=== PATIENT | male | born 1965 | race Caucasian/White ===

== ENCOUNTER → 2017-03-11 | Outpatient (CLI) | payer BC ==
[~2017-03-11] MED LIST: AMLO10TA2 PO; ASPI-496 PO; ATOR20TA9 PO; OXYC-229 PO; TRIA100A INJ
== END | disposition home or self-care (01) ==
LOC: CFH 14:16
PROVIDERS: ATTEND Internal Medicine Cardiovascular Disease
DX: I70.90 Unspecified atherosclerosis (principal); E78.5 Hyperlipidemia, unspecified
CPT/HCPCS: 75571

== ENCOUNTER 2018-09-25 22:01 | Emergency (ER) | payer BC ==
[~2018-09-25] VITALS: Ht 180.3 cm; Wt 114.0 kg
[~2018-09-25 22:01] MED LIST changes: -AMLO10TA2 PO; +AMLO10TA6 PO; +ATOR20TA37 PO; -ATOR20TA9 PO; -OXYC-229 PO; +OXYC-307 PO
[2018-09-25 22:02] VITALS: BP 142/85
[2018-09-25] MEDS ORDERED: LOSA50TA7 PO (22:06)
[2018-09-25 22:34] LABS: BASOPHILS # (AUTO) 0.04 x10^3/uL (0-0.1); BASOPHILS % (AUTO) 0 % (0-1); EOSINOPHILS # (AUTO) 0.42 x10^3/uL (0-0.4); EOSINOPHILS % (AUTO) 4 % (1-7); LYMPHOCYTES % (AUTO) 19 % (22-44); MD NO; MEAN CORPUSCULAR HEMOGLOBIN 32.1 pg (27.5-34.5); MEAN CORPUSCULAR HGB CONC 34.1 g/dL (33.2-36.2); MEAN CORPUSCULAR VOLUME 94.1 fL (81-97); MEAN PLATELET VOLUME 10.6 fL (7.4-10.4); MONOCYTES # (AUTO) 0.93 x10^3/uL (0.2-0.8); MONOCYTES % (AUTO) 9 % (2-9); NEUTROPHILS # (AUTO) 6.92 x10^3/uL (1.8-6.8); NEUTROPHILS % (AUTO) 67 % (42-75); PLATELET COUNT 197 x10^3/uL (130-400); RED BLOOD COUNT 4.78 x10^6/uL (4.38-5.82); RED CELL DISTRIBUTION WIDTH 14.4 % (9.4-14.8)
[2018-09-25 22:45] LABS: ANION GAP 8 mmol/L (5-15); CALCIUM 8.9 mg/dL (8.5-10.1); CHLORIDE 109 mmol/L (98-107); CREATININE 1.17 mg/dL (0.7-1.3)
[2018-09-25 22:49] LABS: TROPONIN I < 0.015 ng/mL (0.000-0.045)
[2018-09-25] MEDS ORDERED: ALBUTEROL/IPRATROPIUM 2.5MG/0.5MG, 3 ML NPPB ONE (23:30)
[2018-09-25] MEDS ORDERED: ALBUTEROL/IPRATROPIUM 2.5MG/0.5MG, 3 ML ONE (23:40)
== END 2018-09-25 23:56 | disposition home or self-care (01) ==
LOC: ED 22:57
DX: J06.9 Acute upper respiratory infection, unspecified (principal); J45.909 Unspecified asthma, uncomplicated
CPT/HCPCS: 36415; 71045; 80048; 83880; 84484; 85025; 93005; 94640; 99284; J7512; J7620

== ENCOUNTER 2020-05-14 02:54 | Emergency (ER) | payer BC ==
[~2020-05-14] VITALS: Ht 180.3 cm; Wt 106.5 kg
[~2020-05-14 02:54] MED LIST changes: -AMLO10TA6 PO; +AMLO10TA8 PO; +LOSA50TA14 PO
[2020-05-14] MEDS ORDERED: ALBUTEROL/IPRATROPIUM 2.5MG/0.5MG, 3 ML ONE (03:25)
[2020-05-14] MEDS ORDERED: ALBUTEROL/IPRATROPIUM 2.5MG/0.5MG, 3 ML NPPB SCH (03:30)
--- NOTE | 2020-05-14 03:42 | NUR ---
PT STATES USING INHAILER Q1H & STEROIDS S RELIEF. PT C INSP WHEEZING THROUGHOUT. RX PER DEC. STARTED ON [place]. WILL CTM.
[2020-05-14 04:11] VITALS: BP 165/87
--- NOTE | 2020-05-14 04:11 | NUR ---
PT STATES FEELING MUCH BETTER AFTER TREATMENT.
== END 2020-05-14 04:13 | disposition home or self-care (01) ==
LOC: ED 04:10
DX: J45.41 Moderate persistent asthma with (acute) exacerbation (principal); R94.31 Abnormal electrocardiogram [ECG] [EKG]
CPT/HCPCS: 93005; 94640; 99283; J7512

== ENCOUNTER → 2021-05-02 | Outpatient (CLI) | payer BC ==
[~2021-05-02] MED LIST changes: +AMLO-211 PO; -AMLO10TA8 PO; -OXYC-307 PO; +OXYC-380 PO
== END | disposition home or self-care (01) ==
LOC: CFH 08:22
PROVIDERS: ATTEND Internal Medicine Cardiovascular Disease
DX: Z13.6 Encounter for screening for cardiovascular disorders (principal); E78.5 Hyperlipidemia, unspecified; I25.10 Atherosclerotic heart disease of native coronary artery without angina pectoris
CPT/HCPCS: 75571

== ENCOUNTER 2021-06-16 09:43 | Emergency (ER) | payer BC ==
[~2021-06-16] VITALS: Ht 180.3 cm; Wt 110.0 kg
--- NOTE | 2021-06-16 09:47 | NUR ---
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
[2021-06-16 09:49] VITALS: BP 122/71
== END 2021-06-16 11:16 | disposition home or self-care (01) ==
LOC: ED 11:09
DX: S00.01XA Abrasion of scalp, initial encounter (principal); S09.90XA Unspecified injury of head, initial encounter; J45.909 Unspecified asthma, uncomplicated; X58.XXXA Exposure to other specified factors, initial encounter; Y93.89 Activity, other specified; Y92.89 Other specified places as the place of occurrence of the external cause; Y99.8 Other external cause status
CPT/HCPCS: 70450; 99284